=== PATIENT | male | born 1955 | race Caucasian/White ===

== ENCOUNTER → 2024-07-06 10:54 | Outpatient (CLI) | payer MEDICARE, SELFPAY ==
--- NOTE | 2024-07-06 | DI.US.S_ITS ---
PROCEDURE: US PERIPH VENOUS LOW EXTREM RT INDICATIONS: PAIN IN RIGHT LEG, DEEP VEIN THROMBOSIS TECHNIQUE: Real-time imaging, as well as color and pulse Doppler interrogation, were performed of the lower extremity deep veins from the inguinal ligament to the popliteal fossa, with documentation of the visualized calf veins. COMPARISON: [facility], CR, XR LUMBAR SPINE 2-3V, 07/06/2024, 11:01. [facility], CR, XR HIP W PEL IF DONE RT 2V, 07/06/2024, 11:01. FINDINGS: The common femoral, femoral, popliteal, and the visualized calf veins are normally compressible, and free of intraluminal thrombus. Color and pulse Doppler demonstrate normal phasic intraluminal flow. There is normal augmentation response to distal compression maneuver. IMPRESSION: No findings of lower extremity deep venous thrombosis. Dictated by: González Squires M.D. on 07/06/2024 at 13:10 Approved by: González Squires M.D. on 07/06/2024 at 13:11
--- NOTE | 2024-07-06 10:58 | DI.RAD.S_ITS ---
PROCEDURE: XR LUMBAR SPINE 2-3V INDICATIONS: SCIATICA, RIGHT HIP PAIN TECHNIQUE: 3 views of the lumbar spine were acquired. COMPARISON: None. FINDINGS: Bones: 5 [id number] vertebrae are present. Trace multilevel retrolisthesis and mild to moderate multilevel disc height loss. Mild L4-5 and L5-S1 facet arthropathy. No vertebral body compression fractures. No suspicious bony lesions. Soft tissues: Overlying bowel gas pattern is normal. No suspicious soft tissue calcifications. IMPRESSION: Multilevel spondylitic changes throughout the spine. Dictated by: Polina Coon M.D. on 07/06/2024 at 16:35 Approved by: Polina Coon M.D. on 07/06/2024 at 16:36
--- NOTE | 2024-07-06 10:58 | DI.RAD.S_ITS ---
PROCEDURE: XR HIP W PEL IF DONE RT 2V INDICATIONS: RIGHT HIP PAIN, SCIATICA TECHNIQUE: Two views of the hip were acquired. COMPARISON: [facility], CR, XR FEMUR 2+ VIEWS RIGHT, 10/05/2019, 13:49. FINDINGS: Bones: There is a right hip deformity from a prior comminuted trochanteric fracture. There has been interval removal of hip pins and femoral shellie. Lateral periostitis is seen. There is bridging callus between the displaced lesser trochanter fragment and femoral neck. The degree of varus deformity has increased by about 15? since the prior exam. Minor degenerative sclerotic changes in both hip joints. Soft tissues: No suspicious soft tissue calcifications or masses. IMPRESSION: Interval removal of fracture fixation hardware from the right femur and gradual increase in varus deformity of the right hip over about five years. Mild hip joint degeneration. Dictated by: Polina Coon M.D. on 07/06/2024 at 16:30 Approved by: Polina Coon M.D. on 07/06/2024 at 16:34
== END ==
PROVIDERS: PCP Family Medicine; Referring Provider Family Medicine; Visit Provider Family Medicine
DX: M16.0 Bilateral primary osteoarthritis of hip (principal); S72.101S Unspecified trochanteric fracture of right femur, sequela; M21.151 Varus deformity, not elsewhere classified, right hip; M54.31 Sciatica, right side; M47.816 Spondylosis without myelopathy or radiculopathy, lumbar region; M47.817 Spondylosis without myelopathy or radiculopathy, lumbosacral region; I82.401 Acute embolism and thrombosis of unspecified deep veins of right lower extremity; M25.551 Pain in right hip; M79.604 Pain in right leg
CPT/HCPCS: 72100; 73502; 93971

== ENCOUNTER → 2025-05-14 12:09 | Outpatient (CLI) | payer MEDICARE, SELFPAY ==
--- NOTE | 2025-05-14 12:11 | DI.MRI.S_ITS ---
PROCEDURE: MR LUMBAR SPINE WO CON INDICATIONS: Sciatica TECHNIQUE: Noncontrast sagittal T1 spin echo and T2 fast echo, sagittal STIR, and T2 fast spin echo through the lumbar spine. In cases with scoliosis, additional coronal T2 fast spin echo may be performed. COMPARISON: None. FINDINGS: Image quality: Excellent. Alignment and Curvature: There is normal bony alignment. Bone Marrow: Multilevel degenerative endplate changes. Marrow is of normal overall signal. No acute vertebral body compression fractures. Spinal Cord: Conus medullaris terminates at the L1 level. Visualized cord demonstrates normal signal and size. Paraspinous Soft Tissues: No paravertebral masses. T12-L1: Disc desiccation and mild disc bulge. No significant central canal or neural foraminal stenosis. L1-L2: Disc desiccation and mild disc bulge. Facet arthropathy no significant central canal stenosis. Mild bilateral neural foraminal stenosis. L2-L3: Disc desiccation and mild disc bulge. Facet arthropathy. Mild to moderate central canal stenosis. Mild bilateral neural foraminal stenosis. L3-L4: Disc desiccation diffuse disc bulge. Facet arthropathy and thickening of ligamentum flavum. Moderate to severe central canal stenosis. Moderate bilateral neural foraminal stenosis, greater on the left. L4-L5: Disc desiccation and moderate height loss. Diffuse disc bulge. Facet arthropathy and thickening of ligamentum flavum. Mild to moderate central canal stenosis. Severe right and moderate left neural foraminal stenosis. L5-S1: Disc desiccation and mild diffuse disc bulge with small superimposed central disc protrusion and posterior annular tear. Facet arthropathy. No significant central canal stenosis. Moderate left and mild right neural foraminal stenosis. IMPRESSION: 1. Multilevel degenerative changes of the lumbar spine as described above. 2. Moderate to severe central canal stenosis at L3-L4. 3. Severe right neural foraminal stenosis at L4-5. Multilevel mild and moderate neural foraminal stenosis at other levels. Dictated by: Berto Moses M.D. on 05/14/2025 at 21:03 Approved by: Berto Moses M.D. on 05/14/2025 at 21:05
== END ==
PROVIDERS: PCP Family Medicine; Referring Provider Family Medicine; Visit Provider Family Medicine
DX: M54.31 Sciatica, right side (principal); M47.816 Spondylosis without myelopathy or radiculopathy, lumbar region; M48.061 Spinal stenosis, lumbar region without neurogenic claudication
CPT/HCPCS: 72148

== ENCOUNTER → 2025-11-10 13:34 | Outpatient (CLI) | payer MEDICARE, SELFPAY ==
--- NOTE | 2025-11-10 13:37 | DI.MRI.S_ITS ---
PROCEDURE: MR CERVICAL SPINE WO CON INDICATIONS: Radiculopathy, cervical region TECHNIQUE: Noncontrast sagittal T1 spin echo and T2 fast spin echo, sagittal STIR, foraminal oblique sagittal T2 fast spin echo, and axial gradient echo or T2 fast spin echo through the cervical spine. COMPARISON: None. FINDINGS: Image quality: Excellent. Alignment and Curvature: There is trace retrolisthesis of C5 on C6, trace anterolisthesis of C2 on C3, C7 on T1. Bone Marrow: Marrow demonstrates normal overall signal. Spinal Cord: Visualized spinal cord has normal size and signal. No cerebellar tonsillar herniation. Paraspinous Soft Tissues: No paravertebral masses. Prevertebral soft tissues are normal in thickness. Discs: Multilevel moderate to severe disc desiccation most prominent at C5-6, C6-7. C2-C3: Mild disc bulge without spinal stenosis. Moderate right foraminal narrowing with uncovertebral hypertrophy. C3-C4: Mild disc bulge with effacement of the anterior thecal sac. Moderate bilateral foraminal narrowing with uncovertebral hypertrophy. C4-C5: Mild disc bulge with effacement of the anterior thecal sac. Severe left and moderate right foraminal narrowing with uncovertebral hypertrophy. C5-C6: Mild disc bulge with moderate spinal stenosis. Severe left and moderate right foraminal narrowing with uncovertebral hypertrophy. C6-C7: Mild disc bulge without spinal stenosis. Moderate to severe bilateral foraminal narrowing, right greater than left with uncovertebral hypertrophy. C7-T1: Trace disc bulge without spinal stenosis. No foraminal narrowing. IMPRESSION: Multilevel disc bulges. Spinal stenosis most prominent at C5-6 secondary to disc bulge. Overall moderate to severe multilevel foraminal narrowing most severe at C4-5 and C6-7 secondary to uncovertebral arthropathy. Dictated by: Anna Smith M.D. on 11/11/2025 at 9:42 Approved by: Anna Smith M.D. on 11/11/2025 at 9:47
== END ==
PROVIDERS: PCP Family Medicine; Referring Provider Anesthesiology Pain Medicine; Visit Provider Anesthesiology Pain Medicine
DX: M50.11 Cervical disc disorder with radiculopathy, high cervical region (principal); M48.02 Spinal stenosis, cervical region; M47.22 Other spondylosis with radiculopathy, cervical region
CPT/HCPCS: 72141